=== PATIENT | female | born 1980 | race Caucasian/White ===

== ENCOUNTER 2023-03-05 09:36 | Outpatient (OUT) | payer OTHER, SELFPAY ==
--- NOTE | 2023-03-05 09:39 | MM_ITS ---
Patient: DALE VINSON Exam Date: 03/05/2023 : 1980 Gender:F Ordering : REGINE LOMBARDI Admission #: [id number] Family : Order #: [id number] CLICK HERE TO VIEW EXAM RADIOLOGY REPORT PROCEDURE: MM TOMOSYNTHESIS SCREENING BI COMPARISON: MG MAMM SCREEN 3D [place] CAD, 03/05/2022. MG MAMM SCREEN 3D [place] CAD, 03/01/2021. MG MAMM SCREEN [facility] W CAD, 02/29/2020. MG MAMM [facility] DIAG W CAD, 12/01/2017. INDICATIONS: Screening mammogram Z12.31 Calculator Name NCI Breast Cancer Risk Assessment Tool 5 Year Breast Cancer Risk 0.90% Lifetime Breast Cancer Risk 10.70% Personal Breast Cancer No Personal Ovarian Cancer No Treatments None Family Cancers None LOCATION: [facility] BREAST COMPOSITION: Scattered areas fibroglandular density. FINDINGS: DIAGNOSTIC CATEGORY 2--BENIGN FINDING: RIGHT BREAST: No significant suspicious finding. No significant change has occurred. LEFT BREAST: No significant suspicious finding. Scattered benign-appearing calcifications are present. No significant change has occurred. RECOMMENDATIONS: ROUTINE MAMMOGRAM AND CLINICAL EVALUATION IN 12 MONTHS. PLEASE NOTE: A NORMAL MAMMOGRAM DOES NOT EXCLUDE THE POSSIBILITY OF BREAST CANCER. A CLINICALLY SUSPICIOUS PALPABLE LUMP SHOULD BE BIOPSIED. Dictated by: Sai Durant M.D. on 03/06/2023 at 13:05 Approved by: Sai Durant M.D. on 03/06/2023 at 13:08
== END 2023-03-05 09:37 | disposition home or self-care (01) ==
LOC: MAMMO 09:37
PROVIDERS: PCP Nurse Practitioner; Visit Provider Nurse Practitioner
DX: Z12.31 Encounter for screening mammogram for malignant neoplasm of breast (principal)
CPT/HCPCS: 77063; 77067

== ENCOUNTER 2024-03-07 08:21 | Outpatient (OUT) | payer OTHER, SELFPAY ==
--- NOTE | 2024-03-07 08:23 | MM_ITS ---
Patient Name: DALE GOMEZ MR#: [id number] : 1980 Exam Date: 03/07/2024 Ordering Doctor: REGINE LOMBARDI RADIOLOGY REPORT PROCEDURE: MM TOMOSYNTHESIS SCREENING BI COMPARISON: MG MAMM SCREEN 3D [place] CAD, 03/05/2022. MM TOMOSYNTHESIS SCREENING BI, 03/05/2023. INDICATIONS: Screening Calculator Name NCI Breast Cancer Risk Assessment Tool 5 Year Breast Cancer Risk 0.90% Lifetime Breast Cancer Risk 10.60% Personal Breast Cancer No Personal Ovarian Cancer No Treatments None Family Cancers None LOCATION: [facility] BREAST COMPOSITION: There are scattered areas of fibroglandular density. FINDINGS: DIAGNOSTIC CATEGORY 2--BENIGN FINDING. NO CHANGE FROM COMPARISON. Scattered benign-appearing calcifications are present. Scattered benign-appearing lymph nodes are present. RIGHT BREAST: No significant suspicious finding. LEFT BREAST: No significant suspicious finding. RECOMMENDATIONS: ROUTINE MAMMOGRAM AND CLINICAL EVALUATION IN 12 MONTHS. PLEASE NOTE: A NORMAL MAMMOGRAM DOES NOT EXCLUDE THE POSSIBILITY OF BREAST CANCER. A CLINICALLY SUSPICIOUS PALPABLE LUMP SHOULD BE BIOPSIED. Dictated by: Edwin Preciado MD on 03/07/2024 at 09:40 Approved by: Edwin Preciado MD on 03/07/2024 at 09:41
== END 2024-03-07 08:22 | disposition home or self-care (01) ==
LOC: MAMMO 08:21
PROVIDERS: PCP Nurse Practitioner; Visit Provider Nurse Practitioner
DX: Z12.31 Encounter for screening mammogram for malignant neoplasm of breast (principal)
CPT/HCPCS: 77063; 77067

== ENCOUNTER 2025-03-08 10:36 | Outpatient (OUT) | payer OTHER, SELFPAY ==
--- NOTE | 2025-03-08 10:43 | MM_ITS ---
Patient Name: DALE GOMEZ MR#: [id number] : 1980 Exam Date: 03/08/2025 Ordering Doctor: REGINE LOMBARDI RADIOLOGY REPORT PROCEDURE: MM TOMOSYNTHESIS SCREENING BI COMPARISON: MM TOMOSYNTHESIS SCREENING BI, 03/07/2024. MM TOMOSYNTHESIS SCREENING BI, 03/05/2023. MG MAMM SCREEN 3D [place] CAD, 03/05/2022. MG MAMM [place] DIAG W CAD, 12/01/2017. INDICATIONS: Screening Calculator Name NCI Breast Cancer Risk Assessment Tool 5 Year Breast Cancer Risk 0.90% Lifetime Breast Cancer Risk 10.50% Personal Breast Cancer No Personal Ovarian Cancer No Treatments None Family Cancers None LOCATION: [facility] BREAST COMPOSITION: There are scattered areas of fibroglandular density. FINDINGS: RIGHT BREAST: No significant suspicious finding. LEFT BREAST: No significant suspicious finding. DIAGNOSTIC CATEGORY 1--NEGATIVE. RECOMMENDATIONS: ROUTINE MAMMOGRAM AND CLINICAL EVALUATION IN 12 MONTHS. PLEASE NOTE: A NORMAL MAMMOGRAM DOES NOT EXCLUDE THE POSSIBILITY OF BREAST CANCER. A CLINICALLY SUSPICIOUS PALPABLE LUMP SHOULD BE BIOPSIED. Dictated by: Peña Mendoza MD on 03/08/2025 at 14:15 Approved by: Peña Mendoza MD on 03/08/2025 at 14:20
== END 2025-03-08 10:37 | disposition home or self-care (01) ==
LOC: MAMMO 10:38
PROVIDERS: PCP Nurse Practitioner; Visit Provider Nurse Practitioner
DX: Z12.31 Encounter for screening mammogram for malignant neoplasm of breast (principal)
CPT/HCPCS: 77063; 77067